=== PATIENT | male | born 1955 | race Hispanic/Latino ===

== ENCOUNTER 2024-09-24 07:36 | Day surgery (SDC) | payer OTHER ==
[2024-09-24] VITALS (10 sets, daily range): BP systolic 113–144; BP diastolic 67–79; PULSE 62–73; RESP 14–21; TEMP 97.2–97.9
[~2024-09-24] VITALS: Ht 172.7 cm; Wt 81.6 kg
[~2024-09-24 07:36] MED LIST: EMPA10TA PO; LOSA25TA41 PO; OMEP40CA21 PO; SUCR1TAB2 PO
[2024-09-24] MEDS: 0.9%NACL 1000ML 1,000 ML IV ONE (08:07)
[2024-09-24] MEDS ORDERED: proPOFol 10 MG/ML 20ML VIAL IV ONE ×2 (09:09→09:22)
== END 2024-09-24 10:25 ==
LOC: ENDO 07:36 → DAH 07:36 → ENDO 10:25
PROVIDERS: ATTEND Internal Medicine Gastroenterology
DX: R93.3 Abnormal findings on diagnostic imaging of other parts of digestive tract (principal); C16.1 Malignant neoplasm of fundus of stomach; K31.89 Other diseases of stomach and duodenum; I10 Essential (primary) hypertension; F41.9 Anxiety disorder, unspecified; F32.A Depression, unspecified; K57.30 Diverticulosis of large intestine without perforation or abscess without bleeding; E11.9 Type 2 diabetes mellitus without complications; E78.5 Hyperlipidemia, unspecified; D49.0 Neoplasm of unspecified behavior of digestive system; R94.5 Abnormal results of liver function studies; K59.04 Chronic idiopathic constipation; Z88.0 Allergy status to penicillin; Z86.0100 Personal history of colon polyps, unspecified; Z79.84 Long term (current) use of oral hypoglycemic drugs; Z79.899 Other long term (current) drug therapy
CPT/HCPCS: 43259; 82948 ×2; J7030 ×2; J2704; A4620; A4215; A4223; A7002; A4222; A4221; A4663; A4606; J3490

== ENCOUNTER 2025-04-29 06:13 | Day surgery (SDC) | payer OTHER ==
[~2025-04-29] VITALS: Ht 172.7 cm; Wt 54.4 kg
[2025-04-29] VITALS (9 sets, daily range): BP systolic 102–121; BP diastolic 62–79; PULSE 68–72; RESP 14–18; TEMP 97.2–97.3
[2025-04-29] MEDS: 0.9%NACL 1000ML 1,000 ML IV ONE (06:56)
[2025-04-29] MEDS ORDERED: LIDOCAINE PF 100MG/5ML (2%) SYRINGE 5ML ONE (07:26)
[2025-04-29] MEDS ORDERED: GLYCOPYRROLATE 0.2 MG/ML 5 ML VIAL ONE (07:31)
[2025-04-29] MEDS: DEXTROSE 50%-WATER 50 ML DISP.SYRIN IV ONE (08:55)
--- NOTE | 2025-04-29 09:33 | NUR ---
Full and complete discharge instructions given to Patient and Family both verbally and in writing. Tolerated fluids and voided in bathroom. PIV removed with catheter tip intact. W/C to POV with Family to home.
== END 2025-04-29 09:34 | disposition home or self-care (01) ==
LOC: DAH 06:13 → ENDO 06:13
PROVIDERS: ATTEND Surgery
DX: R13.14 Dysphagia, pharyngoesophageal phase (principal); K22.2 Esophageal obstruction; K91.89 Other postprocedural complications and disorders of digestive system; K22.89 Other specified disease of esophagus; I10 Essential (primary) hypertension; F41.9 Anxiety disorder, unspecified; F32.A Depression, unspecified; E78.5 Hyperlipidemia, unspecified; E11.9 Type 2 diabetes mellitus without complications; K31.89 Other diseases of stomach and duodenum; Z90.49 Acquired absence of other specified parts of digestive tract; Z98.890 Other specified postprocedural states; Z93.3 Colostomy status; Z88.0 Allergy status to penicillin; Z79.899 Other long term (current) drug therapy
CPT/HCPCS: 43249; 82948; J7030; J7070; J2003; J2704 ×2; J3490; A4620; A4215 ×2; A4223; A4222; A4221; A4663; A4606; C1726